=== PATIENT | male | born 1955 | race Caucasian/White ===

== ENCOUNTER 2020-12-14 19:16 | Inpatient (IN) | payer OTHER ==
[2020-12-14] MEDS ORDERED: ALBUTEROL SO4 2.5/IPRATROPIUM 0.5 INH SOL 3 ML VIAL.NEB. NEB ONE ×3 (20:45→21:43)
[2020-12-14] MEDS ORDERED: AZITHROMYCIN IVPB 500 MG in DEXTROSE 5%-WATER - 250 ML IVPB ONE (21:11)
[2020-12-14] MEDS ORDERED: DEXAMETHASONE SOD PHOSPHATE 10 MG/1 ML VIAL IVPUSH ONE (21:25)
[2020-12-14] MEDS ORDERED: AZITHROMYCIN IVPB 500 MG/250 ML BAG IVPB ONE (21:26)
[2020-12-14] MEDS ORDERED: MEROPENEM 1 GM in DEXTROSE 5%-WATER 100 ML IVPB ONE (21:29)
[2020-12-14] MEDS ORDERED: VANCOMYCIN 1 GM in D5W (PRE-DOCKED) 1,000 MG/250 ML IVPB ONE (21:35)
[2020-12-14] MEDS ORDERED: methylPREDNISolone NA SUCC 125 MG/2 ML VIAL IVPUSH ONE (21:38)
[2020-12-14] MEDS ORDERED: VANCOMYCIN 1 GRAM (PRE-DOCKED) 1,000 MG/250 ML BAG IVPB ONE (21:43)
[2020-12-14] MEDS ORDERED: methylPREDNISolone NA SUCC 125 MG/2 ML VIAL ONE (21:43)
[2020-12-14] MEDS ORDERED: ACETAMINOPHEN 1000 MG/100 ML VIAL IVPB ONE (21:45)
[2020-12-14 21:47] LABS: BASO % 1.4 % (0-2.0); EOS % 0.4 % (0-4.5); HEMATOCRIT 24.4 % (35.4-49); HEMOGLOBIN 8.2 GM/dL (11.7-16.9); LYMPH % 6.3 % (8-40); MCH 27.9 pg (25.7-33.7); MCHC 33.5 g/dl (32.0-35.9); MEAN CELL VOLUME 83.2 fl (80-96); MONO % 5.3 % (3.8-10.2); NEUT % 86.6 % (42.8-82.8); PLATELET COUNT 602 10^3/uL (134-434); RBC 2.94 M/mm3 (4.00-5.60); RDW 18.1 % (11.9-15.9); WHITE BLOOD COUNT 13.9 K/mm3 (4.0-10.0)
[2020-12-14 21:54] LABS: INR 1.17 (0.83-1.09); PROTHROMBIN TIME (PATIENT) 13.7 SEC (9.7-13.0)
[2020-12-14 21:57] LABS: ACTIVATED PTT 28.7 SECONDS (25.2-36.5)
[2020-12-14 21:59] LABS: CHLORIDE 98 mmol/L (98-107); SODIUM 135 mmol/L (136-145)
[2020-12-14] MEDS ORDERED: ACETAMINOPHEN INJECTION 100 ML IVPB ONE (22:00)
[2020-12-14 22:02] LABS: ALBUMIN 2.1 g/dl (3.4-5.0); ANION GAP 10 MMOL/L (8-16); BLOOD UREA NITROGEN 49.5 mg/dL (7-18); CALCIUM 8.6 mg/dL (8.5-10.1); CO2 27 mmol/L (21-32); GLUCOSE,RANDOM 84 mg/dL (74-106)
[2020-12-14 22:05] LABS: SGPT/ALT 14 U/L (13-61)
[2020-12-14 22:06] LABS: CREATININE 5.3 mg/dL (0.55-1.3); MAGNESIUM 1.7 mg/dL (1.8-2.4); SGOT/AST 21 U/L (15-37)
[2020-12-14 22:07] LABS: BILIRUBIN,TOTAL 0.4 mg/dL (0.2-1)
[2020-12-14 22:08] LABS: ALK PHOS 101 U/L (45-117); PHOSPHOROUS 4.7 mg/dL (2.5-4.9)
[2020-12-14 22:10] LABS: N-TERMINAL BNP 34397.1 pg/ml (5-125)
[2020-12-14 22:11] LABS: ALLENS TEST POSITIVE; ARTERIAL BLOOD GAS BASE EXCESS 1.4 mmol/L (-2-2); ARTERIAL BLOOD GAS PO2 56.8 mmHg (80-100); ARTERIAL BLOOD GAS pH 7.493 (7.350-7.450)
[2020-12-15] MEDS ORDERED: ACETAMINOPHEN 1000 MG/100 ML VIAL IVPB PRN (04:00)
[2020-12-15] MEDS ORDERED: MAGNESIUM SULF 50% (8.12 MEQ/2 ML-1 GM VIAL) IVPB ONE (05:14)
[2020-12-15] MEDS ORDERED: MAGNESIUM SULFATE IN WATER 2 GM/50 ML IVPB IVPB ONE (05:49)
[2020-12-15] MEDS ORDERED: GABAPENTIN 100 MG CAPSULE ONE ×2 (06:16→15:31)
[2020-12-15] MEDS: GABAPENTIN 100 MG CAPSULE PO SCH ×3 (06:51→21:04)
[2020-12-15 07:02] LABS: HEMATOCRIT 22.1 % (35.4-49); HEMOGLOBIN 7.6 GM/dL (11.7-16.9); MCH 28.4 pg (25.7-33.7); MCHC 34.4 g/dl (32.0-35.9); MEAN CELL VOLUME 82.4 fl (80-96); MEAN PLT VOLUME 7.1 fl (7.5-11.1); PLATELET COUNT 565 10^3/uL (134-434); RBC 2.69 M/mm3 (4.00-5.60); RDW 18.3 % (11.9-15.9); WHITE BLOOD COUNT 9.8 K/mm3 (4.0-10.0)
[2020-12-15 09:20] LABS: ALBUMIN 2.1 g/dl (3.4-5.0); BILIRUBIN,TOTAL 0.4 mg/dL (0.2-1); BLOOD UREA NITROGEN 52.8 mg/dL (7-18); CALCIUM 8.5 mg/dL (8.5-10.1); CREATININE 5.6 mg/dL (0.55-1.3); TOT PROT 5.8 g/dl (6.4-8.2)
[2020-12-15 09:30] LABS: ANISOCYTOSIS 1+; MACROCYTOSIS 0; OVALOCYTE 1+; PLATELET ESTIMATE INCREASED; TARGET CELLS 1+; TOXIC GRANULATION 1+
[2020-12-15] MEDS: CARVEDILOL 6.25 MG TABLET (FP) PO SCH ×2 (10:00→21:04)
[2020-12-15] MEDS: PANTOPRAZOLE 20 MG TABLET PO SCH ×2 (10:00→21:04)
[2020-12-15] MEDS: methylPREDNISolone NA SUCC 40 MG/1 ML VIAL IVPUSH SCH ×3 (10:00→21:03)
[2020-12-15] MEDS: amLODIPine BESYLATE 10 MG TABLET (FP) PO SCH (10:00)
[2020-12-15] MEDS: VITAMIN B COMP W-C 1 EA TABLET (NEPHRO-VITE) PO SCH (10:00)
[2020-12-15] MEDS: ALLOPURINOL 100 MG TABLET (FP) PO SCH (10:00)
[2020-12-15] MEDS: ESCITALOPRAM OXALATE 20 MG TABLET PO SCH (10:00)
[2020-12-15] MEDS: ASPIRIN 81 MG CHEWABLE TABLETS PO SCH (10:00)
[2020-12-15] MEDS ORDERED: methylPREDNISolone NA SUCC 40 MG/1 ML VIAL ONE ×2 (10:22→15:34)
[2020-12-15] MEDS ORDERED: ASPIRIN COATED 81 MG TABLET.EC ONE (10:22)
[2020-12-15] MEDS ORDERED: PANTOPRAZOLE 20 MG TABLET PO ONE (10:36)
[2020-12-15] MEDS ORDERED: traMADol HCL 50 MG TABLET ONE (12:59)
[2020-12-15] MEDS: traMADol HCL 50 MG TABLET PO PRN ×2 (12:59→21:04)
[2020-12-15] MEDS: HEPARIN NA (PORCINE) 5,000 UNITS/ML 1ML VIAL SQ SCH (21:03)
[2020-12-16] MEDS: methylPREDNISolone NA SUCC 40 MG/1 ML VIAL IVPUSH SCH ×4 (02:02→21:07)
[2020-12-16] MEDS: MELATONIN 5 MG TABLETS PO PRN ×2 (02:21→21:08)
[2020-12-16] MEDS: GABAPENTIN 100 MG CAPSULE PO SCH ×3 (05:59→21:08)
[2020-12-16] MEDS: ALLOPURINOL 100 MG TABLET (FP) PO SCH (09:30)
[2020-12-16] MEDS: ESCITALOPRAM OXALATE 20 MG TABLET PO SCH (09:30)
[2020-12-16] MEDS: HEPARIN NA (PORCINE) 5,000 UNITS/ML 1ML VIAL SQ SCH ×2 (09:30→21:08)
[2020-12-16] MEDS: ASPIRIN 81 MG CHEWABLE TABLETS PO SCH (09:30)
[2020-12-16] MEDS: PANTOPRAZOLE 20 MG TABLET PO SCH ×2 (09:30→21:08)
[2020-12-16] MEDS: CARVEDILOL 6.25 MG TABLET (FP) PO SCH ×2 (09:30→21:08)
[2020-12-16] MEDS: amLODIPine BESYLATE 10 MG TABLET (FP) PO SCH (09:30)
[2020-12-16] MEDS: VITAMIN B COMP W-C 1 EA TABLET (NEPHRO-VITE) PO SCH (09:30)
[2020-12-16] MEDS: traMADol HCL 50 MG TABLET PO PRN ×2 (09:39→18:53)
[2020-12-16] MEDS ORDERED: SODIUM CHLORIDE 250 ML IV PRN (14:04)
[2020-12-16] MEDS: TIOTROPIUM BROMIDE 2.5 MCG (SPIRIVA) RESPIMAT INHALER IH SCH (14:13)
[2020-12-16] MEDS ORDERED: EPOETIN ALFA-EPBX 4,000 UNIT/ML VIAL SQ ONE (15:00)
[2020-12-16] MEDS ORDERED: DEXTROSE 5%-WATER 100 ML IVPB ONE (17:31)
[2020-12-16] MEDS ORDERED: CEFEPIME HCL 1 GM VIAL (RESTRICTED TO ID) ONE (17:31)
[2020-12-16] MEDS: AMINO ACIDS/PROTEIN HYDROLYS 30 ML LIQUID.PKT PO SCH (18:47)
[2020-12-16] MEDS: CEFEPIME 1 GM in DEXTROSE 5%-WATER 100 ML IVPB SCH (18:47)
[2020-12-16] MEDS: ALBUTEROL SO4 2.5/IPRATROPIUM 0.5 INH SOL 3 ML VIAL.NEB. NEB PRN (19:08)
[2020-12-17] MEDS: methylPREDNISolone NA SUCC 40 MG/1 ML VIAL IVPUSH SCH ×3 (03:30→17:42)
[2020-12-17] MEDS: GABAPENTIN 100 MG CAPSULE PO SCH ×3 (05:52→21:07)
[2020-12-17] MEDS: AMINO ACIDS/PROTEIN HYDROLYS 30 ML LIQUID.PKT PO SCH ×2 (08:16→16:51)
[2020-12-17] MEDS: PANTOPRAZOLE 20 MG TABLET PO SCH ×2 (09:22→21:07)
[2020-12-17] MEDS: VITAMIN B COMP W-C 1 EA TABLET (NEPHRO-VITE) PO SCH (09:22)
[2020-12-17] MEDS: ESCITALOPRAM OXALATE 20 MG TABLET PO SCH (09:23)
[2020-12-17] MEDS: ASPIRIN 81 MG CHEWABLE TABLETS PO SCH (09:23)
[2020-12-17] MEDS: CARVEDILOL 6.25 MG TABLET (FP) PO SCH ×2 (09:23→21:07)
[2020-12-17] MEDS: amLODIPine BESYLATE 10 MG TABLET (FP) PO SCH (09:23)
[2020-12-17] MEDS: ALLOPURINOL 100 MG TABLET (FP) PO SCH (09:23)
[2020-12-17] MEDS: HEPARIN NA (PORCINE) 5,000 UNITS/ML 1ML VIAL SQ SCH ×2 (09:24→21:07)
[2020-12-17] MEDS: TIOTROPIUM BROMIDE 2.5 MCG (SPIRIVA) RESPIMAT INHALER IH SCH (09:25)
[2020-12-17] MEDS: traMADol HCL 50 MG TABLET PO PRN ×2 (09:43→18:34)
[2020-12-17 12:52] LABS: HEMATOCRIT 20.6 % (35.4-49); MCH 28.1 pg (25.7-33.7); MCHC 33.1 g/dl (32.0-35.9); MEAN CELL VOLUME 84.8 fl (80-96); MEAN PLT VOLUME 7.2 fl (7.5-11.1); PLATELET COUNT 583 10^3/uL (134-434); RBC 2.43 M/mm3 (4.00-5.60); RDW 18.6 % (11.9-15.9); WHITE BLOOD COUNT 11.2 K/mm3 (4.0-10.0)
[2020-12-17 13:17] LABS: HEMOGLOBIN 6.8 GM/dL (11.7-16.9)
[2020-12-17 13:40] LABS: HEPATITIS B SURFACE AG MATERN NON-REACTIVE (NONREACTIVE)
[2020-12-17] MEDS ORDERED: CEFEPIME HCL 1 GM VIAL (RESTRICTED TO ID) ONE (16:46)
[2020-12-17] MEDS ORDERED: DEXTROSE 5%-WATER 100 ML IVPB ONE (16:46)
[2020-12-17] MEDS: ACETAMINOPHEN 325 MG TABLET (FP) PO PRN (17:41)
[2020-12-17] MEDS: CEFEPIME 1 GM in DEXTROSE 5%-WATER 100 ML IVPB SCH (18:02)
[2020-12-17] MEDS: MELATONIN 5 MG TABLETS PO PRN (21:07)
[2020-12-18] MEDS: SIMETHICONE 80 MG TAB.CHEW (FP) PO PRN ×4 (00:55→21:28)
[2020-12-18] MEDS: methylPREDNISolone NA SUCC 40 MG/1 ML VIAL IVPUSH SCH ×3 (01:49→17:21)
[2020-12-18] MEDS: GABAPENTIN 100 MG CAPSULE PO SCH ×3 (05:27→21:33)
[2020-12-18] MEDS: AMINO ACIDS/PROTEIN HYDROLYS 30 ML LIQUID.PKT PO SCH ×3 (09:21→17:20)
[2020-12-18 10:38] LABS: HEMATOCRIT 23.7 % (35.4-49); HEMOGLOBIN 7.9 GM/dL (11.7-16.9); MCH 28.2 pg (25.7-33.7); MCHC 33.5 g/dl (32.0-35.9); MEAN CELL VOLUME 84.3 fl (80-96); MEAN PLT VOLUME 7.5 fl (7.5-11.1); PLATELET COUNT 563 10^3/uL (134-434); RBC 2.81 M/mm3 (4.00-5.60); RDW 17.1 % (11.9-15.9); WHITE BLOOD COUNT 16.6 K/mm3 (4.0-10.0)
[2020-12-18] MEDS ORDERED: SODIUM CHLORIDE 250 ML IV PRN (11:08)
[2020-12-18] MEDS ORDERED: PT OWN MED DRAWER 7, Y5N ONE (11:30)
[2020-12-18] MEDS ORDERED: EPOETIN ALFA-EPBX 10,000 UNIT/ML VIAL SQ ONE (11:30)
[2020-12-18 12:06] LABS: BLOOD UREA NITROGEN 66.9 mg/dL (7-18); CALCIUM 7.9 mg/dL (8.5-10.1)
[2020-12-18 12:09] LABS: CREATININE 4.9 mg/dL (0.55-1.3)
[2020-12-18] MEDS: POLYETHYLENE GLYCOL (HEALTHYLAX) 3350 17 GM PACKET PO SCH (12:56)
[2020-12-18] MEDS: CARVEDILOL 6.25 MG TABLET (FP) PO SCH ×3 (14:26→23:20)
[2020-12-18] MEDS: PANTOPRAZOLE 20 MG TABLET PO SCH ×2 (14:26→21:33)
[2020-12-18] MEDS: HEPARIN NA (PORCINE) 5,000 UNITS/ML 1ML VIAL SQ SCH ×2 (14:26→21:33)
[2020-12-18] MEDS: ESCITALOPRAM OXALATE 20 MG TABLET PO SCH (14:27)
[2020-12-18] MEDS: ALLOPURINOL 100 MG TABLET (FP) PO SCH (14:27)
[2020-12-18] MEDS: VITAMIN B COMP W-C 1 EA TABLET (NEPHRO-VITE) PO SCH (14:27)
[2020-12-18] MEDS: amLODIPine BESYLATE 10 MG TABLET (FP) PO SCH (14:27)
[2020-12-18] MEDS: ASPIRIN 81 MG CHEWABLE TABLETS PO SCH (14:27)
[2020-12-18] MEDS: TIOTROPIUM BROMIDE 2.5 MCG (SPIRIVA) RESPIMAT INHALER IH SCH (14:32)
[2020-12-18] MEDS ORDERED: CEFEPIME HCL 1 GM VIAL (RESTRICTED TO ID) ONE (17:18)
[2020-12-18] MEDS ORDERED: DEXTROSE 5%-WATER 100 ML IVPB ONE (17:18)
[2020-12-18] MEDS: traMADol HCL 50 MG TABLET PO PRN (17:19)
[2020-12-18] MEDS: CEFEPIME 1 GM in DEXTROSE 5%-WATER 100 ML IVPB SCH ×2 (17:20→17:21)
[2020-12-19] MEDS: methylPREDNISolone NA SUCC 40 MG/1 ML VIAL IVPUSH SCH ×3 (01:44→17:00)
[2020-12-19] MEDS: GABAPENTIN 100 MG CAPSULE PO SCH ×3 (06:08→21:26)
[2020-12-19] MEDS: AMINO ACIDS/PROTEIN HYDROLYS 30 ML LIQUID.PKT PO SCH ×2 (11:05→16:58)
[2020-12-19] MEDS: VITAMIN B COMP W-C 1 EA TABLET (NEPHRO-VITE) PO SCH (11:06)
[2020-12-19] MEDS: CARVEDILOL 6.25 MG TABLET (FP) PO SCH ×2 (11:06→21:26)
[2020-12-19] MEDS: ASPIRIN 81 MG CHEWABLE TABLETS PO SCH (11:06)
[2020-12-19] MEDS: ALLOPURINOL 100 MG TABLET (FP) PO SCH (11:07)
[2020-12-19] MEDS: PANTOPRAZOLE 20 MG TABLET PO SCH ×2 (11:07→21:26)
[2020-12-19] MEDS: HEPARIN NA (PORCINE) 5,000 UNITS/ML 1ML VIAL SQ SCH ×2 (11:07→21:26)
[2020-12-19] MEDS: ESCITALOPRAM OXALATE 20 MG TABLET PO SCH (11:07)
[2020-12-19] MEDS: amLODIPine BESYLATE 10 MG TABLET (FP) PO SCH (11:07)
[2020-12-19] MEDS: POLYETHYLENE GLYCOL (HEALTHYLAX) 3350 17 GM PACKET PO SCH (11:08)
[2020-12-19] MEDS: TIOTROPIUM BROMIDE 2.5 MCG (SPIRIVA) RESPIMAT INHALER IH SCH (11:08)
[2020-12-19] MEDS: traMADol HCL 50 MG TABLET PO PRN ×2 (11:26→22:48)
[2020-12-19] MEDS ORDERED: SODIUM CHLORIDE 250 ML IV PRN (11:36)
[2020-12-19] MEDS ORDERED: CEFEPIME HCL 1 GM VIAL (RESTRICTED TO ID) ONE (15:13)
[2020-12-19] MEDS ORDERED: DEXTROSE 5%-WATER 100 ML IVPB ONE (15:13)
[2020-12-19] MEDS: CEFEPIME 1 GM in DEXTROSE 5%-WATER 100 ML IVPB SCH (17:02)
[2020-12-19] MEDS: ALBUTEROL SO4 2.5/IPRATROPIUM 0.5 INH SOL 3 ML VIAL.NEB. NEB PRN (20:34)
[2020-12-19] MEDS: MELATONIN 5 MG TABLETS PO PRN (22:56)
[2020-12-20] MEDS: methylPREDNISolone NA SUCC 40 MG/1 ML VIAL IVPUSH SCH ×2 (03:09→13:04)
[2020-12-20] MEDS: GABAPENTIN 100 MG CAPSULE PO SCH ×3 (06:13→21:14)
[2020-12-20] MEDS ORDERED: EPOETIN ALFA-EPBX 10,000 UNIT/ML VIAL IVPUSH ONE (08:30)
[2020-12-20 10:07] LABS: HEMATOCRIT 26.6 % (35.4-49); MCH 29.2 pg (25.7-33.7); MEAN CELL VOLUME 85.9 fl (80-96); MEAN PLT VOLUME 8.3 fl (7.5-11.1); PLATELET COUNT 549 10^3/uL (134-434); RBC 3.09 M/mm3 (4.00-5.60); RDW 17.5 % (11.9-15.9)
[2020-12-20] MEDS: AMINO ACIDS/PROTEIN HYDROLYS 30 ML LIQUID.PKT PO SCH ×2 (12:58→18:28)
[2020-12-20] MEDS: CARVEDILOL 6.25 MG TABLET (FP) PO SCH ×2 (12:59→21:14)
[2020-12-20] MEDS: HEPARIN NA (PORCINE) 5,000 UNITS/ML 1ML VIAL SQ SCH ×2 (12:59→21:15)
[2020-12-20] MEDS: POLYETHYLENE GLYCOL (HEALTHYLAX) 3350 17 GM PACKET PO SCH (12:59)
[2020-12-20] MEDS: ASPIRIN 81 MG CHEWABLE TABLETS PO SCH (13:00)
[2020-12-20] MEDS: VITAMIN B COMP W-C 1 EA TABLET (NEPHRO-VITE) PO SCH (13:01)
[2020-12-20] MEDS: ESCITALOPRAM OXALATE 20 MG TABLET PO SCH (13:01)
[2020-12-20] MEDS: amLODIPine BESYLATE 10 MG TABLET (FP) PO SCH (13:01)
[2020-12-20] MEDS: ALLOPURINOL 100 MG TABLET (FP) PO SCH (13:02)
[2020-12-20] MEDS: PANTOPRAZOLE 20 MG TABLET PO SCH ×2 (13:02→21:14)
[2020-12-20] MEDS: TIOTROPIUM BROMIDE 2.5 MCG (SPIRIVA) RESPIMAT INHALER IH SCH (13:03)
[2020-12-20] MEDS ORDERED: CEFEPIME HCL 1 GM VIAL (RESTRICTED TO ID) ONE (18:06)
[2020-12-20] MEDS ORDERED: DEXTROSE 5%-WATER 100 ML IVPB ONE (18:07)
[2020-12-20] MEDS: CEFEPIME 1 GM in DEXTROSE 5%-WATER 100 ML IVPB SCH (18:28)
[2020-12-20 20:24] VITALS: BMI 19.1
[2020-12-20] MEDS: MELATONIN 5 MG TABLETS PO PRN (21:14)
[2020-12-21] MEDS: GABAPENTIN 100 MG CAPSULE PO SCH ×3 (05:43→21:05)
[2020-12-21] MEDS ORDERED: ZINC SULFATE 220 MG CAPSULE (FP) PO SCH (10:00)
[2020-12-21] MEDS: AMINO ACIDS/PROTEIN HYDROLYS 30 ML LIQUID.PKT PO SCH ×2 (11:26→18:04)
[2020-12-21] MEDS: traMADol HCL 50 MG TABLET PO PRN ×2 (11:27→19:57)
[2020-12-21] MEDS: ESCITALOPRAM OXALATE 20 MG TABLET PO SCH (11:27)
[2020-12-21] MEDS: predniSONE 20 MG TABLET (UD) PO SCH (11:27)
[2020-12-21] MEDS: VITAMIN B COMP W-C 1 EA TABLET (NEPHRO-VITE) PO SCH (11:28)
[2020-12-21] MEDS: CARVEDILOL 6.25 MG TABLET (FP) PO SCH ×2 (11:28→21:05)
[2020-12-21] MEDS: ALLOPURINOL 100 MG TABLET (FP) PO SCH (11:28)
[2020-12-21] MEDS: ASPIRIN 81 MG CHEWABLE TABLETS PO SCH (11:28)
[2020-12-21] MEDS: amLODIPine BESYLATE 10 MG TABLET (FP) PO SCH (11:28)
[2020-12-21] MEDS: ZINC SULFATE 220 MG CAPSULE (FP) PO SCH (11:28)
[2020-12-21] MEDS: POLYETHYLENE GLYCOL (HEALTHYLAX) 3350 17 GM PACKET PO SCH (11:29)
[2020-12-21] MEDS: HEPARIN NA (PORCINE) 5,000 UNITS/ML 1ML VIAL SQ SCH ×2 (11:29→21:05)
[2020-12-21] MEDS: PANTOPRAZOLE 20 MG TABLET PO SCH ×2 (11:29→21:05)
[2020-12-21] MEDS: TIOTROPIUM BROMIDE 2.5 MCG (SPIRIVA) RESPIMAT INHALER IH SCH (11:30)
[2020-12-21] MEDS: ACETAMINOPHEN 325 MG TABLET (FP) PO PRN ×2 (11:33→19:58)
[2020-12-21] MEDS ORDERED: CEFEPIME HCL 1 GM VIAL (RESTRICTED TO ID) ONE (17:53)
[2020-12-21] MEDS ORDERED: DEXTROSE 5%-WATER 100 ML IVPB ONE (17:53)
[2020-12-21] MEDS: CEFEPIME 1 GM in DEXTROSE 5%-WATER 100 ML IVPB SCH (18:04)
[2020-12-21] MEDS: MELATONIN 5 MG TABLETS PO PRN (21:05)
[2020-12-22] MEDS: GABAPENTIN 100 MG CAPSULE PO SCH ×3 (05:51→21:52)
[2020-12-22] MEDS: POLYETHYLENE GLYCOL (HEALTHYLAX) 3350 17 GM PACKET PO SCH (10:29)
[2020-12-22] MEDS: traMADol HCL 50 MG TABLET PO PRN ×2 (10:30→18:49)
[2020-12-22] MEDS: VITAMIN B COMP W-C 1 EA TABLET (NEPHRO-VITE) PO SCH (10:30)
[2020-12-22] MEDS: CARVEDILOL 6.25 MG TABLET (FP) PO SCH ×2 (10:31→21:52)
[2020-12-22] MEDS: amLODIPine BESYLATE 10 MG TABLET (FP) PO SCH (10:31)
[2020-12-22] MEDS: ASPIRIN 81 MG CHEWABLE TABLETS PO SCH (10:31)
[2020-12-22] MEDS: predniSONE 20 MG TABLET (UD) PO SCH (10:31)
[2020-12-22] MEDS: ESCITALOPRAM OXALATE 20 MG TABLET PO SCH (10:31)
[2020-12-22] MEDS: PANTOPRAZOLE 20 MG TABLET PO SCH ×2 (10:31→21:52)
[2020-12-22] MEDS: ALLOPURINOL 100 MG TABLET (FP) PO SCH (10:31)
[2020-12-22] MEDS: AMINO ACIDS/PROTEIN HYDROLYS 30 ML LIQUID.PKT PO SCH ×2 (10:32→17:07)
[2020-12-22] MEDS: ZINC SULFATE 220 MG CAPSULE (FP) PO SCH (10:32)
[2020-12-22] MEDS: TIOTROPIUM BROMIDE 2.5 MCG (SPIRIVA) RESPIMAT INHALER IH SCH (10:32)
[2020-12-22] MEDS: HEPARIN NA (PORCINE) 5,000 UNITS/ML 1ML VIAL SQ SCH ×2 (10:32→21:52)
[2020-12-22] MEDS: ACETAMINOPHEN 325 MG TABLET (FP) PO PRN (18:50)
[2020-12-22] MEDS: MELATONIN 5 MG TABLETS PO PRN (22:00)
[2020-12-23] MEDS: GABAPENTIN 100 MG CAPSULE PO SCH ×3 (06:44→22:00)
[2020-12-23] MEDS: AMINO ACIDS/PROTEIN HYDROLYS 30 ML LIQUID.PKT PO SCH ×2 (08:30→17:10)
[2020-12-23] MEDS ORDERED: EPOETIN ALFA-EPBX 4,000 UNIT/ML VIAL SQ ONE ×2 (10:17)
[2020-12-23] MEDS ORDERED: SODIUM CHLORIDE 250 ML IV PRN (10:40)
[2020-12-23] MEDS ORDERED: EPOETIN ALFA-EPBX 2,000 UNIT, EPOETIN ALFA-EPBX 3,000 UNIT IVPUSH ONE (11:00)
[2020-12-23] MEDS ORDERED: EPOETIN ALFA-EPBX 2,000 UNIT, EPOETIN ALFA-EPBX 3,000 UNIT SQ ONE (11:00)
[2020-12-23] MEDS: POLYETHYLENE GLYCOL (HEALTHYLAX) 3350 17 GM PACKET PO SCH (13:29)
[2020-12-23] MEDS: ZINC SULFATE 220 MG CAPSULE (FP) PO SCH (13:29)
[2020-12-23] MEDS: ALLOPURINOL 100 MG TABLET (FP) PO SCH (13:30)
[2020-12-23] MEDS: amLODIPine BESYLATE 10 MG TABLET (FP) PO SCH (13:31)
[2020-12-23] MEDS: PANTOPRAZOLE 20 MG TABLET PO SCH ×2 (13:31→22:00)
[2020-12-23] MEDS: ESCITALOPRAM OXALATE 20 MG TABLET PO SCH (13:31)
[2020-12-23] MEDS: ASPIRIN 81 MG CHEWABLE TABLETS PO SCH (13:31)
[2020-12-23] MEDS: CARVEDILOL 6.25 MG TABLET (FP) PO SCH ×2 (13:31→22:00)
[2020-12-23] MEDS: VITAMIN B COMP W-C 1 EA TABLET (NEPHRO-VITE) PO SCH (13:31)
[2020-12-23] MEDS: HEPARIN NA (PORCINE) 5,000 UNITS/ML 1ML VIAL SQ SCH ×2 (13:32→22:00)
[2020-12-23] MEDS: predniSONE 20 MG TABLET (UD) PO SCH (13:32)
[2020-12-23] MEDS: TIOTROPIUM BROMIDE 2.5 MCG (SPIRIVA) RESPIMAT INHALER IH SCH (13:35)
[2020-12-23] MEDS: traMADol HCL 50 MG TABLET PO PRN (20:02)
[2020-12-23] MEDS: ACETAMINOPHEN 325 MG TABLET (FP) PO PRN (20:03)
[2020-12-23] MEDS: MELATONIN 5 MG TABLETS PO PRN (22:00)
[2020-12-24] MEDS: traMADol HCL 50 MG TABLET PO PRN (04:31)
[2020-12-24] MEDS: ACETAMINOPHEN 325 MG TABLET (FP) PO PRN (04:32)
[2020-12-24] MEDS: GABAPENTIN 100 MG CAPSULE PO SCH ×2 (07:01→13:28)
[2020-12-24] MEDS: AMINO ACIDS/PROTEIN HYDROLYS 30 ML LIQUID.PKT PO SCH (10:35)
[2020-12-24] MEDS: CARVEDILOL 6.25 MG TABLET (FP) PO SCH (10:40)
[2020-12-24] MEDS: PANTOPRAZOLE 20 MG TABLET PO SCH (10:40)
[2020-12-24] MEDS: VITAMIN B COMP W-C 1 EA TABLET (NEPHRO-VITE) PO SCH (10:40)
[2020-12-24] MEDS: ALLOPURINOL 100 MG TABLET (FP) PO SCH (10:41)
[2020-12-24] MEDS: predniSONE 20 MG TABLET (UD) PO SCH (10:41)
[2020-12-24] MEDS: ZINC SULFATE 220 MG CAPSULE (FP) PO SCH (10:41)
[2020-12-24] MEDS: ASPIRIN 81 MG CHEWABLE TABLETS PO SCH (10:41)
[2020-12-24] MEDS: HEPARIN NA (PORCINE) 5,000 UNITS/ML 1ML VIAL SQ SCH (10:42)
[2020-12-24] MEDS: POLYETHYLENE GLYCOL (HEALTHYLAX) 3350 17 GM PACKET PO SCH (10:42)
[2020-12-24] MEDS: amLODIPine BESYLATE 10 MG TABLET (FP) PO SCH (10:42)
[2020-12-24] MEDS: ESCITALOPRAM OXALATE 20 MG TABLET PO SCH (10:42)
[2020-12-24] MEDS ORDERED: traMADol HCL 50 MG TABLET PO PRN (11:00)
[2020-12-24] MEDS: TIOTROPIUM BROMIDE 2.5 MCG (SPIRIVA) RESPIMAT INHALER IH SCH (12:47)
[2020-12-24 13:26] VITALS: BP 133/78
[2020-12-24 14:30] VITALS: PULSE 92; TEMP 98.8
== END 2020-12-24 15:15 | DRG 698 ==
LOC: JER 19:16 → JERBED 22:22 → J5S 12-15 17:49
PROVIDERS: ADMIT Internal Medicine; ATTEND Internal Medicine
PROC: 5A1D70Z Performance of Urinary Filtration, Intermittent, Less than 6 Hours Per Day (ICD-10-PCS; principal; 2020-12-18)
PROC: 5A1D70Z Performance of Urinary Filtration, Intermittent, Less than 6 Hours Per Day (ICD-10-PCS; 2020-12-20)
PROC: 5A1D70Z Performance of Urinary Filtration, Intermittent, Less than 6 Hours Per Day (ICD-10-PCS; 2020-12-23)
DX: T82.42XA Displacement of vascular dialysis catheter, initial encounter (principal); N18.6 End stage renal disease; J18.9 Pneumonia, unspecified organism; J44.1 Chronic obstructive pulmonary disease with (acute) exacerbation; I12.0 Hypertensive chronic kidney disease with stage 5 chronic kidney disease or end stage renal disease; J90 Pleural effusion, not elsewhere classified; I10 Essential (primary) hypertension; E78.5 Hyperlipidemia, unspecified; D64.9 Anemia, unspecified; E83.51 Hypocalcemia; Z99.2 Dependence on renal dialysis; Y83.8 Other surgical procedures as the cause of abnormal reaction of the patient, or of later complication, without mention of misadventure at the time of the procedure; G25.0 Essential tremor; R50.9 Fever, unspecified; M10.9 Gout, unspecified; K59.00 Constipation, unspecified; B19.20 Unspecified viral hepatitis C without hepatic coma; F41.8 Other specified anxiety disorders; K21.9 Gastro-esophageal reflux disease without esophagitis; Z96.649 Presence of unspecified artificial hip joint; Z96.659 Presence of unspecified artificial knee joint; Z88.9 Allergy status to unspecified drugs, medicaments and biological substances
CPT/HCPCS: 36415; 36430; 36511; 36600; 71045-TC-FY; 73502-TC-RT-FY; 73560-TC-RT-FY; 76775-TC; 80048; 80053; 82272; 82550; 82803; 82962; 83605; 83735; 83880; 84100; 84484; 85025; 85027; 85610; 85730; 86704; 86705; 86708; 86803; 86850; 86900; 86901; 86922; 87040; 87070; 87205; 87340; 87517; 87522; 93005; 93010; 94640; 97116-GP; 97162-GP; 99285-25; C9803; G0480; J0131; J1644; P9038; P9058; Q5106; U0003; U0005